=== PATIENT | male | born 1995 | race Caucasian/White ===

== ENCOUNTER 2016-03-15 04:29 | Emergency (ER) | payer SELFPAY ==
[~2016-03-15] VITALS: Ht 180.3 cm; Wt 68.0 kg
[2016-03-15] MEDS ORDERED: NAPR500T3 PO (05:17)
--- NOTE | 2016-03-15 05:17 | ED Lower Extremity ---
General Chief Complaint: Lower Extremity Stated Complaint: RT ANKLE PAIN Nursing Triage Note: PT REPORTS R ANKLE PAIN. NO KNOWN INJURY Nursing Sepsis Screen: No Definite Risk Source: patient History of Present Illness Time seen by provider: 04:40 Initial Comments PT ARRIVES VIA POV C/O CHRONIC RIGHT ANKLE PAIN OVER MEDIAL MALLEOLUS--ONGOING FOR SEVERAL YEARS, WORSE OR THE LAST SEVERAL MONTHS TO YEAR PT STATES HE WAS DX WITH "OSTEOCHONDRONIC LESION OF TALUS BONE" 3 YEARS AGO AT THE [facility] [place], [place]. STATES HE WAS NEVER REFERRED TO AN ORTHOPEDIST OR FOLLOWED UP WITH ANYONE AT ANY TIME SINCE THEN UNTIL TODAY NO INJURY RECENTLY OR IN THE PAST. HAS NOT TAKEN ANYTHING FOR PAIN AT ANY TIME STATES YESTERDAY MORNING WHEN HE GOT OUT OF BED HE COULDN'T HARDLY BEAR WEIGHT ON IT FOR AN HOUR, THEN PAIN WAS BACK TO HIS USUAL SINCE THEN SYMPTOMS NO DIFFERENT TODAY IN ANY WAY PCP: NONE ALSO STATES HE DOES NOT HAVE ANY VA BENEFITS Allergies and Home Medications Allergies Coded Allergies: No Known Drug Allergies (Unverified , 03/15/16) Home Medications Naproxen 500 Mg Tablet #20 500 MG PO BID Prescribed by: MICHAELLE ISSA on 03/15/16 0517 Constitutional: no symptoms reported Musculoskeletal: see HPI Skin: no symptoms reported Psychiatric/Neurological: No Symptoms Reported Past Tamtrmt-Rowpdy-Mbxzih Hx Patient Social History Alcohol Use: Occasionally Uses Recreational Drug Use: No Smoking Status: Current Everyday Smoker Type Used: Cigarettes Recent Foreign Travel: No Contact w/Someone Who Travel: No Recent Infectious Disease Expo: No Recent Hopitalizations: No Physical Abuse Screen: No Sexual Abuse: No Seasonal Allergies Seasonal Allergies: No Surgeries HX Surgeries: No Respiratory Hx Respiratory Disorders: No Cardiovascular Hx Cardiac Disorders: No Neurological Hx Neurological Disorders: No Reproductive System Hx Reproductive Disorders: No Genitourinary Hx Genitourinary Disorders: No Gastrointestinal Hx Gastrointestinal Disorders: No Musculoskeletal Hx Musculoskeletal Disorders: Yes (CHRONIC RIGHT ANKLE PAIN OVER MEDIAL MALLEOLUS) Endocrine Hx Endocrine Disorders: No HEENT HX ENT Disorders: No Cancer Hx Cancer: No Psychosocial Hx Psychiatric Problems: No Integumentary HX Skin/Integumentary Disorder: No Blood Transfusions Hx Blood Disorders: No Physical Exam Vital Signs Vital Sign - Last 12Hours 03/15/16 04:42 Temp 96.9 Pulse 108 Resp 18 B/P 131/87 Pulse Ox 96 O2 Delivery Room Air Capillary Refill : Less Than 3 Seconds General Appearance: WD/WN no apparent distress other (AMBULATES WITHOUT DIFFICULTY. ) Legs: right leg normal inspection Knees: right knee normal inspection Ankles: right ankle other (MILD TENDERNESS DIRECTLY OVER RIGHT MEDIAL MALLEOLUS , NO EXTERNAL EVIDENCE OF TRAUMA. NO CREPITANCE OR DEFORMTITY. 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 no motor/sensory deficits alert normal mood/affect oriented x 3 Skin: normal color warm/dry Splinting and Joint Reduction : Splints: Air Stirrup [place] Progress/Results/Core Measures Results/Orders My Orders Orders-MICHAELLE ISSA DO Ankle, Right, 3 Views (03/15/16 04:46) Gel Ankle Brace (03/15/16 05:14) Vital Signs/I&O Vital Sign - Last 12Hours 03/15/16 03/15/16 04:42 05:24 Temp 96.9 96.9 Pulse 108 95 Resp 18 18 B/P 131/87 Pulse Ox 96 98 O2 Delivery Room Air Blood Pressure Mean: 102 Departure Impression Impression: Primary Impression: Chronic pain of right ankle Disposition: 01 HOME, SELF-CARE Condition: Stable Departure-Patient Inst. Referrals: NO,LOCAL PHYSICIAN (PCP/Family) Primary Care Physician Patient Instructions: AIRCAST, Ankle Sprain (DC), CHRONIC PAIN Add. Discharge Instructions: ALTERNATE ICE AND HEAT TO SORE AREA AT 20 MINUTE INTERVAL WEAR SPLINT NEEDED FOR COMFORT FOLLOW UP WITH OF CHOICE NEXT WEEK FOR FURTHER CARE All discharge instructions reviewed with patient and/or family. Voiced understanding. Scripts Naproxen 500 Mg Qopent251 Mg PO BID #20 TAB Prov:MICHAELLE ISSA DO 03/15/16 Work/School Note: Local Medical Staff Listing Images Extremities-Lower 1 - Mild, Tenderness MICHAELLE ISSA DO Mar 15, 2016 05:17
[2016-03-15 05:24] VITALS: BP 129/85
--- NOTE | 2016-03-15 06:34 | Diagnostic Imaging Report ---
INDICATION: Right ankle pain Three views of the right ankle show no fracture, dislocation or other acute abnormalities. IMPRESSION: Negative right ankle Dictated by: Dictated on workstation # [id number]
== END 2016-03-15 05:24 | disposition home or self-care (01) ==
LOC: ER 04:34
DX: M25.571 Pain in right ankle and joints of right foot (principal); F17.210 Nicotine dependence, cigarettes, uncomplicated
CPT/HCPCS: 73610